=== PATIENT | male | born 1965 | race Caucasian/White ===

== ENCOUNTER 2019-06-30 22:35 | Observation (INO) | payer BC ==
[2019-06-30] MEDS ORDERED: HYDROmorphone 0.5 MG/0.5 ML SYRINGE IVP STA (22:59)
[2019-06-30] MEDS ORDERED: SODIUM CHLORIDE 0.9% 500 ML 500 ML IV STA (22:59)
--- NOTE | 2019-06-30 23:18 | XR ---
EXAMINATION TYPE: XR KUB DATE OF EXAM: 06/30/2019 COMPARISON: NONE HISTORY: Abdominal pain TECHNIQUE: 3 views upright FINDINGS: There are some dilated small bowel loops with air-fluid levels. There is a relative lack of large bowel gas. Lung bases are clear. There are no pathologic calcifications over the kidneys. IMPRESSION: Mildly dilated small bowel suggestive of significant ileus or mechanical small bowel obst ruction. No free air.
--- NOTE | 2019-06-30 23:20 | ED ---
General Adult HPI - General Chief complaint: Abdominal Pain Stated complaint: abd pain Time Seen by Provider: 06/30/19 22:47 Source: patient, RN notes reviewed, old records reviewed Mode of arrival: ambulatory Limitations: no limitations - History of Present Illness Initial comments: 53 -year-old male presenting with abdominal pain and distention. Symptoms have progressed over the course of 12 hours. He's had 3 bowel movements and has been passing gas since the onset of symptoms. No nausea, no vomiting. Pain is predominantly upper abdomen. No chest pain or dyspnea. He's had subjective fever and chills. Previous history of abdominal umbilical hernia repair no other abdominal surgeries. - Related Data Home Medications Medication Instructions Recorded Confirmed Aspirin 81 mg PO DAILY 06/30/19 06/30/19 Carvedilol 12.5 mg PO BID 06/30/19 06/30/19 Clopidogrel [Plavix] 75 mg PO DAILY 06/30/19 06/30/19 Digoxin [Lanoxin] 250 mcg PO DAILY 06/30/19 06/30/19 Ezetimibe [Zetia] 10 mg PO DAILY 06/30/19 06/30/19 Fenofibrate Nanocrystallized 145 mg PO DAILY 06/30/19 06/30/19 [Fenofibrate] Pitavastatin Calcium [Livalo] 1 mg PO Q24HR 06/30/19 06/30/19 Ranitidine HCl 150 mg PO BID 06/30/19 06/30/19 Sacubitril/Valsartan [Entresto 24 1 each PO BID 06/30/19 06/30/19 mg-26 mg Tablet] metFORMIN HCL 500 mg PO BID 06/30/19 06/30/19 Allergies Allergy/AdvReac Type Severity Reaction Status Date / Time No Known Allergies Allergy Verified 06/30/19 22:40 Review of Systems ROS Statement: Those systems with pertinent positive or pertinent negative responses have been documented in the HPI. ROS Other: All systems not noted in ROS Statement are negative. Past Medical History Past Medical History: Hyperlipidemia, Hypertension Additional Past Medical History / Comment(s): LBBB History of Any Multi-Drug Resistant Organisms: None Reported Past Surgical History: Heart Catheterization With Stent, Pacemaker Past Psychological History: No Psychological Hx Reported Smoking Status: Never smoker Past Alcohol Use History: None Reported Past Drug Use History: None Reported General Exam Limitations: no limitations General appearance: alert, in no apparent distress Head exam: Present: atraumatic, normocephalic Eye exam: Present: normal appearance, PERRL ENT exam: Present: normal exam Neck exam: Present: normal inspection. Absent: tenderness, meningismus Respiratory exam: Present: normal lung sounds bilaterally. Absent: respiratory distress, wheezes Cardiovascular Exam: Present: regular rate, normal rhythm GI/Abdominal exam: Present: distended, tenderness. Absent: soft Extremities exam: Present: normal inspection, normal capillary refill. Absent: pedal edema Neurological exam: Present: alert, oriented X3, CN II-XII intact. Absent: motor sensory deficit Psychiatric exam: Present: normal affect, normal mood Skin exam: Present: warm, dry, intact. Absent: cyanosis, diaphoretic Course Vital Signs 06/30/19 22:37 Temperature 98.9 F Pulse Rate 79 Respiratory 16 Rate Blood Pressure 138/88 O2 Sat by Pulse 99 Oximetry Medical Decision Making - Medical Decision Making 53-year-old male with 12 hours of abdominal distention and pain. X-ray performed, concerning for ileus or small bowel obstruction, CT performed showing small bowel obstruction with no transition point. Normal CBC, normal CMP, mild lactic acidosis 2.1. Patient hasn't nasogastric tube inserted in the emergency department. Discussed case with Dr. Lazcano covering for surgery, will admit with medicine on consult. - Lab Data Result diagrams: 06/30/19 23:06 06/30/19 23:06 Lab Results 06/30/19 06/30/19 06/30/19 Range/Units 23:06 23:06 23:06 WBC 10.2 (3.8-10.6) k/uL RBC 5.21 (4.30-5.90) m/uL Hgb 15.3 (13.0-17.5) gm/dL Hct 46.1 (39.0-53.0) % MCV 88.5 (80.0-100.0) fL MCH 29.3 (25.0-35.0) pg MCHC 33.1 (31.0-37.0) g/dL RDW 13.4 (11.5-15.5) % Plt Count 222 (150-450) k/uL Neutrophils % 80 % Lymphocytes % 11 % Monocytes % 5 % Eosinophils % 1 % Basophils % 1 % Neutrophils # 8.1 H (1.3-7.7) k/uL Lymphocytes # 1.1 (1.0-4.8) k/uL Monocytes # 0.5 (0-1.0) k/uL Eosinophils # 0.1 (0-0.7) k/uL Basophils # 0.1 (0-0.2) k/uL PT (9.0-12.0) sec INR (<1.2) APTT (22.0-30.0) sec Sodium 138 (137-145) mmol/L Potassium 4.1 (3.5-5.1) mmol/L Chloride 104 (98-107) mmol/L Carbon Dioxide 23 (22-30) mmol/L Anion Gap 11 mmol/L BUN 19 (9-20) mg/dL Creatinine 0.91 (0.66-1.25) mg/dL Est GFR (CKD-EPI)AfAm >90 (>60 ml/min/1.73 sqM) Est GFR (CKD-EPI)NonAf >90 (>60 ml/min/1.73 sqM) Glucose 161 H (74-99) mg/dL Plasma Lactic Acid Srinivas 2.1 H* (0.7-2.0) mmol/L Calcium 9.9 (8.4-10.2) mg/dL Total Bilirubin 0.7 (0.2-1.3) mg/dL AST 30 (17-59) U/L ALT 41 (4-49) U/L Alkaline Phosphatase 64 (38-126) U/L Total Protein 8.3 H (6.3-8.2) g/dL Albumin 5.0 (3.5-5.0) g/dL Amylase 59 (30-110) U/L Lipase 101 (23-300) U/L Urine Color Urine Appearance (Clear) Urine pH (5.0-8.0) Ur Specific [place] (1.001-1.035) Urine Protein (Negative) Urine Glucose (UA) (Negative) Urine Ketones (Negative) Urine Blood (Negative) Urine Nitrite (Negative) Urine Bilirubin (Negative) Urine Urobilinogen (<2.0) mg/dL Ur Leukocyte Esterase (Negative) Urine RBC (0-5) /hpf Urine WBC (0-5) /hpf Amorphous Sediment (None) /hpf Urine Bacteria (None) /hpf Urine Mucus (None) /hpf 02/02/20 02/02/20 Range/Units 23:06 23:06 WBC (3.8-10.6) k/uL RBC (4.30-5.90) m/uL Hgb (13.0-17.5) gm/dL Hct (39.0-53.0) % MCV (80.0-100.0) fL MCH (25.0-35.0) pg MCHC (31.0-37.0) g/dL RDW (11.5-15.5) % Plt Count (150-450) k/uL Neutrophils % % Lymphocytes % % Monocytes % % Eosinophils % % Basophils % % Neutrophils # (1.3-7.7) k/uL Lymphocytes # (1.0-4.8) k/uL Monocytes # (0-1.0) k/uL Eosinophils # (0-0.7) k/uL Basophils # (0-0.2) k/uL PT 10.0 (9.0-12.0) sec INR 1.0 (<1.2) APTT 22.1 (22.0-30.0) sec Sodium (137-145) mmol/L Potassium (3.5-5.1) mmol/L Chloride (98-107) mmol/L Carbon Dioxide (22-30) mmol/L Anion Gap mmol/L BUN (9-20) mg/dL Creatinine (0.66-1.25) mg/dL Est GFR (CKD-EPI)AfAm (>60 ml/min/1.73 sqM) Est GFR (CKD-EPI)NonAf (>60 ml/min/1.73 sqM) Glucose (74-99) mg/dL Plasma Lactic Acid Srinivas (0.7-2.0) mmol/L Calcium (8.4-10.2) mg/dL Total Bilirubin (0.2-1.3) mg/dL AST (17-59) U/L ALT (4-49) U/L Alkaline Phosphatase (38-126) U/L Total Protein (6.3-8.2) g/dL Albumin (3.5-5.0) g/dL Amylase (30-110) U/L Lipase (23-300) U/L Urine Color Yellow Urine Appearance Cloudy (Clear) Urine pH 5.0 (5.0-8.0) Ur Specific [place] 1.024 (1.001-1.035) Urine Protein Trace H (Negative) Urine Glucose (UA) Negative (Negative) Urine Ketones Negative (Negative) Urine Blood Negative (Negative) Urine Nitrite Negative (Negative) Urine Bilirubin Negative (Negative) Urine Urobilinogen <2.0 (<2.0) mg/dL Ur Leukocyte Esterase Negative (Negative) Urine RBC 1 (0-5) /hpf Urine WBC 3 (0-5) /hpf Amorphous Sediment Rare H (None) /hpf Urine Bacteria Rare H (None) /hpf Urine Mucus Few H (None) /hpf Disposition Clinical Impression: Small bowel obstruction Disposition: ADMITTED IP TO THIS [facility] Condition: Stable Is patient prescribed a controlled substance at d/c from ED?: No Referrals: Nonstaff,Physician [Primary Care Provider] - 1-2 days Decision to Admit Reason: Admit from EC Decision Date: 07/01/19 Decision Time: 00:53
[2019-06-30 23:29] LABS: Basophils # (A) 0.1 k/uL (0-0.2); Basophils % (A) 1 %; Eosinophils # (A) 0.1 k/uL (0-0.7); Eosinophils % (A) 1 %; HCT 46.1 % (39.0-53.0); HGB 15.3 gm/dL (13.0-17.5); Lymphocytes # (A) 1.1 k/uL (1.0-4.8); Lymphocytes % (A) 11 %; MCH 29.3 pg (25.0-35.0); MCHC 33.1 g/dL (31.0-37.0); MCV 88.5 fL (80.0-100.0); Mean Platelet Volume 7.8; Monocytes # (A) 0.5 k/uL (0-1.0); Monocytes % (A) 5 %; Neutrophils # (A) 8.1 k/uL (1.3-7.7); Neutrophils % (A) 80 %; Platelet Count 222 k/uL (150-450); RBC 5.21 m/uL (4.30-5.90); RDW 13.4 % (11.5-15.5); WBC 10.2 k/uL (3.8-10.6)
[2019-06-30 23:35] LABS: Amorphous Sediment,Urine Rare /hpf; Appearance,Urine Cloudy (Clear); Bacteria,Urine Rare /hpf; Bilirubin,Urine Negative (Negative); Blood,Urine Negative (Negative); Color,Urine Yellow; Glucose,Urine (UA) Negative (Negative); Ketones,Urine Negative (Negative); Leukocyte Esterase,Urine Negative (Negative); Mucus,Urine Few /hpf; Nitrite,Urine Negative (Negative); Protein,Urine Trace (Negative); RBC,Urine 1 /hpf (0-5); Specific Gravity,Urine 1.024 (1.001-1.035); Urobilinogen,Urine <2.0 mg/dL (<2.0); WBC,Urine 3 /hpf (0-5)
[2019-06-30 23:37] LABS: Partial Thromboplastin Time 22.1 sec (22.0-30.0)
[2019-06-30 23:45] LABS: ALT 41 U/L (4-49); AST 30 U/L (17-59); African American GFR (CKD) >90 (>60 ml/min/1.73 sqM); Alkaline Phosphatase 64 U/L (38-126); Amylase 59 U/L (30-110); Anion Gap 11 mmol/L; Blood Urea Nitrogen 19 mg/dL (9-20); Calcium 9.9 mg/dL (8.4-10.2); Carbon Dioxide 23 mmol/L (22-30); Chloride 104 mmol/L (98-107); Glucose 161 mg/dL (74-99); Non-African American GFR(CKD) >90 (>60 ml/min/1.73 sqM); Potassium 4.1 mmol/L (3.5-5.1); Sodium 138 mmol/L (137-145); Total Bilirubin 0.7 mg/dL (0.2-1.3); Total Protein 8.3 g/dL (6.3-8.2)
--- NOTE | 2019-07-01 00:39 | CT ---
EXAMINATION TYPE: CT abdomen pelvis w con DATE OF EXAM: 07/01/2019 COMPARISON: None HISTORY: Patient presents with abdominal distention. CT DLP: 1606.5 mGycm Automated exposure control for dose reduction was used. CONTRAST: Performed with IV Contrast, patient injected with 100mL mL of Isovue 300. Multiple axial sections were obtained from the diaphragm to the floor the pelvis with intravenous con trast. There is minimal subsegmental atelectasis at the lung bases. Heart size is normal. There is no pleural effusion. There is fatty infiltration of the liver. Spleen is intact. Stomach is intact. There is no pancreatic mass. Gallbladder appears normal. Bile ducts are not dilated. There is no adrenal mass. Kidneys have normal size and contour. There is no hydronephrosis. Ureters are not d ilated. There is 2 mm calculus lateral right kidney. There is 1 cm cyst anterior left kidney. There i s no retroperitoneal adenopathy. Bladder distends smoothly. There is no inguinal hernia. There are multiple dilated air and fluid-filled loops of small bowel throughout the abdomen. The appe ndix appears normal. There is sigmoid diverticulosis without diverticulitis. Transition point is not identified. Lumbar vertebra show anterior mild subluxation of L5 in relation S1. There is no compression fracture . There is L5 spondylolysis. There is first-degree L5-S1 spondylolisthesis. Bony pelvis appears intac t. IMPRESSION: Dilated small bowel with fluid levels consistent with mechanical small bowel obstruction. Transition point not identified. Normal appendix.
[2019-07-01] MEDS ORDERED: HYDROmorphone 1 MG/ML 1 ML SYRINGE IVP PRN (00:50)
[2019-07-01] MEDS ORDERED: NALOXONE 0.4 MG/ML 1 ML VIAL IV PRN (00:50)
[2019-07-01] MEDS ORDERED: ONDANSETRON 4 MG/2 ML VIAL IVP PRN ×2 (00:50→05:59)
[2019-07-01] MEDS ORDERED: HYDROmorphone 0.5 MG/0.5 ML SYRINGE IVP PRN (00:50)
[2019-07-01] MEDS: SODIUM CHLORIDE 0.9% 1,000 ML IV SCH ×3 (01:38→21:07)
[2019-07-01] MEDS: PANTOPRAZOLE 40 MG/10 ML VIAL IV SCH (07:39)
--- NOTE | 2019-07-01 10:11 | P.GSHP ---
History of Present Illness H&P Date: 07/01/19 53-year-old male presented to the emergency department with complaint of abdominal pain for 24 hours. He states that he had significant amount of abdominal pain and bloating. He also felt nauseous. He states that his only previous abdominal surgery is an umbilical hernia repair in 2011. He states his last colonoscopy was 5 years ago with no significant findings other than diverticulosis. On work-up in the emergency department, he was noted to have an ileus versus small bowel obstruction on abdominal x-ray. On CT of the abdomen and pelvis, there is concern for a small bowel obstruction. Nasogastric tube was placed. 800 cc of bilious material was drained. The patient also states that after NG tube was placed he did have emesis episodes. He states currently his abdominal bloating has decreased significantly and his abdominal pain has resolved. He denies any fevers, chills, chest pain or shortness of breath. - Review of Systems All systems: negative Past Medical History Past Medical History: Diabetes Mellitus, Hyperlipidemia, Hypertension Additional Past Medical History / Comment(s): LBBB, Congestive heart failure with AICD follows with [facility], History of Any Multi-Drug Resistant Organisms: None Reported Past Surgical History: Heart Catheterization With Stent, Hernia Repair, Pacemaker Additional Past Surgical History / Comment(s): stent to left circumflex 03/15, PPM with ICD /19, right ankle fracture repair 1995, umbilical hernia repair 2011, achilles tendon repair left 2012 Past Anesthesia/Blood Transfusion Reactions: No Reported Reaction Date of Last Stent Placement:: 02/2018 Type of Cardiac Device: Unknown Device Placement Date:: 06/2018 Past Psychological History: No Psychological Hx Reported Smoking Status: Former smoker Past Alcohol Use History: Rare Past Drug Use History: None Reported - Past Family History Father Additional Family Medical History / Comment(s): cardiac issues, CAD, from lung cancer, HLD Mother Additional Family Medical History / Comment(s): Hepatitis C due to blood tranfusion and developed liver failure, HLD Medications and Allergies Home Medications Medication Instructions Recorded Confirmed Type Aspirin 81 mg PO DAILY 06/30/19 06/30/19 History Carvedilol 12.5 mg PO BID 06/30/19 06/30/19 History Clopidogrel [Plavix] 75 mg PO DAILY 06/30/19 06/30/19 History Digoxin [Lanoxin] 250 mcg PO DAILY 06/30/19 06/30/19 History Ezetimibe [Zetia] 10 mg PO DAILY 06/30/19 06/30/19 History Fenofibrate Nanocrystallized 145 mg PO DAILY 06/30/19 06/30/19 History [Fenofibrate] Pitavastatin Calcium [Livalo] 1 mg PO Q24HR 06/30/19 06/30/19 History Ranitidine HCl 150 mg PO BID 06/30/19 06/30/19 History Sacubitril/Valsartan [Entresto 24 1 each PO BID 06/30/19 06/30/19 History mg-26 mg Tablet] metFORMIN HCL 500 mg PO BID 06/30/19 06/30/19 History Allergies Allergy/AdvReac Type Severity Reaction Status Date / Time No Known Allergies Allergy Verified 06/30/19 22:40 Surgical - Exam Osteopathic Statement: *. No significant issues noted on an osteopathic structural exam other than those noted in the History and Physical/Consult. Vital Signs Temp Pulse Resp BP Pulse Ox 98.9 F 79 16 138/88 99 06/30/19 22:37 06/30/19 22:37 06/30/19 22:37 06/30/19 22:37 06/30/19 22:37 - General well nourished, no distress - Eyes PERRL - ENT no hearing loss - Respiratory normal respiratory effort - Abdomen Soft, nontender, mild distention, no rebound, no guarding - Psychiatric oriented to time, oriented to person, oriented to place Results - Labs 06/30/19 23:06 06/30/19 23:06 Abnormal Lab Results - Last 24 Hours (Table) 06/30/19 06/30/19 06/30/19 Range/Units 23:06 23:06 23:06 Neutrophils # 8.1 H (1.3-7.7) k/uL Glucose 161 H (74-99) mg/dL Plasma Lactic Acid Srinivas 2.1 H* (0.7-2.0) mmol/L Total Protein 8.3 H (6.3-8.2) g/dL Urine Protein (Negative) Amorphous Sediment (None) /hpf Urine Bacteria (None) /hpf Urine Mucus (None) /hpf 06/30/19 Range/Units 23:06 Neutrophils # (1.3-7.7) k/uL Glucose (74-99) mg/dL Plasma Lactic Acid Srinivas (0.7-2.0) mmol/L Total Protein (6.3-8.2) g/dL Urine Protein Trace H (Negative) Amorphous Sediment Rare H (None) /hpf Urine Bacteria Rare H (None) /hpf Urine Mucus Few H (None) /hpf Diabetes panel 06/30/19 Range/Units 23:06 Sodium 138 (137-145) mmol/L Potassium 4.1 (3.5-5.1) mmol/L Chloride 104 (98-107) mmol/L Carbon Dioxide 23 (22-30) mmol/L BUN 19 (9-20) mg/dL Creatinine 0.91 (0.66-1.25) mg/dL Glucose 161 H (74-99) mg/dL Calcium 9.9 (8.4-10.2) mg/dL AST 30 (17-59) U/L ALT 41 (4-49) U/L Alkaline Phosphatase 64 (38-126) U/L Total Protein 8.3 H (6.3-8.2) g/dL Albumin 5.0 (3.5-5.0) g/dL Calcium panel 06/30/19 Range/Units 23:06 Calcium 9.9 (8.4-10.2) mg/dL Albumin 5.0 (3.5-5.0) g/dL Pituitary panel 06/30/19 Range/Units 23:06 Sodium 138 (137-145) mmol/L Potassium 4.1 (3.5-5.1) mmol/L Chloride 104 (98-107) mmol/L Carbon Dioxide 23 (22-30) mmol/L BUN 19 (9-20) mg/dL Creatinine 0.91 (0.66-1.25) mg/dL Glucose 161 H (74-99) mg/dL Calcium 9.9 (8.4-10.2) mg/dL Adrenal panel 06/30/19 Range/Units 23:06 Sodium 138 (137-145) mmol/L Potassium 4.1 (3.5-5.1) mmol/L Chloride 104 (98-107) mmol/L Carbon Dioxide 23 (22-30) mmol/L BUN 19 (9-20) mg/dL Creatinine 0.91 (0.66-1.25) mg/dL Glucose 161 H (74-99) mg/dL Calcium 9.9 (8.4-10.2) mg/dL Total Bilirubin 0.7 (0.2-1.3) mg/dL AST 30 (17-59) U/L ALT 41 (4-49) U/L Alkaline Phosphatase 64 (38-126) U/L Total Protein 8.3 H (6.3-8.2) g/dL Albumin 5.0 (3.5-5.0) g/dL Assessment and Plan (1) Small bowel obstruction Narrative/Plan: 53-year-old male with small bowel obstruction versus ileus Patient states that his last bowel movement and flatus was yesterday, prior to his arrival to the emergency department. We will obtain a abdominal x-ray for evaluation of progress of the small bowel obstruction. Keep the patient n.p.o. Continue nasogastric tube decompression at this time. Current Visit: Yes Status: Acute Code(s): K56.609 - UNSP INTESTNL OBST, UNSP TO PARTIAL VERSUS COMPLETE OBST SNOMED Code(s): 906519996
--- NOTE | 2019-07-01 11:31 | P.CONS ---
History of Present Illness - Reason for Consult Consult date: 07/01/19 CHF Requesting physician: Manjinder Lazcano - Chief Complaint abdominal pain - History of Present Illness Patient is a 53-year-old male with history of heart failure, coronary artery disease status post stenting, hypertension, and diabetes controlled with metformin who presented to the emergency department secondary to abdominal pain. In the ER he underwent an extensive evaluation. His initial vital signs were unremarkable. Laboratory analysis showed an elevated lactic acid of 2.1 which resolved with IV fluids, but was otherwise unremarkable. KUB showed mildly dilated small bowel suggestive significant ileus or mechanical bowel obstruction. He underwent a CT abdomen and pelvis which showed dilated small bowel with fluid levels consistent with mechanical bowel obstruction without transition point. He was given IV fluids, antiemetics, and Dilaudid. He had an NG tube placed with return of 800 mL. He was subsequently admitted to surgery and we were asked to consult for his hypertension. Patient seen and examined at bedside. He reports abdominal pain that started in the afternoon on 06/30, associated with feeling bloated and belching. Progressed to worsening abdominal pressure that was more intense. Had a bowel movement yesterday. Pain was periumbilical with radiation to right and left, no nausea, vomiting X 1 at 5 am after NGT, Unsure if NGT improved the pain. No history of bowel obstruction, had umbilical hernia repaired in 2011. No recent cough, cold, fever, flus. No recent diarrhea or constipation Typically take fiber therapy due to diverticulosis. Colonoscopy at age 48 just with diverticulosis. No hisotry of hospitalization for heart failure. PCP: [facility] in [place] [phone]. Review of Systems Pertinent positives and negatives as discussed in HPI, a complete review of systems was performed and all other systems are negative. Past Medical History Past Medical History: Diabetes Mellitus, Hyperlipidemia, Hypertension Additional Past Medical History / Comment(s): LBBB, Congestive heart failure with AICD follows with [facility], History of Any Multi-Drug Resistant Organisms: None Reported Past Surgical History: Heart Catheterization With Stent, Hernia Repair, Pacemaker Additional Past Surgical History / Comment(s): stent to left circumflex 03/15, PPM with ICD 07/17, right ankle fracture repair 1995, umbilical hernia repair 2011, achilles tendon repair left 2012 Past Anesthesia/Blood Transfusion Reactions: No Reported Reaction Date of Last Stent Placement:: 02/2018 Type of Cardiac Device: Unknown Device Placement Date:: 06/2018 Past Psychological History: No Psychological Hx Reported Smoking Status: Former smoker Past Alcohol Use History: Rare Past Drug Use History: None Reported 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[employer], 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, 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 - Past Family History Father Additional Family Medical History / Comment(s): cardiac issues, CAD, from lung cancer, HLD Mother Additional Family Medical History / Comment(s): Hepatitis C due to blood tranfusion and developed liver failure, HLD Medications and Allergies Home Medications Medication Instructions Recorded Confirmed Type Aspirin 81 mg PO DAILY 06/30/19 07/01/19 History Carvedilol 12.5 mg PO BID 06/30/19 07/01/19 History Clopidogrel [Plavix] 75 mg PO DAILY 06/30/19 07/01/19 History Digoxin [Lanoxin] 250 mcg PO DAILY 06/30/19 07/01/19 History Ezetimibe [Zetia] 10 mg PO DAILY 06/30/19 07/01/19 History Fenofibrate Nanocrystallized 145 mg PO DAILY 06/30/19 07/01/19 History [Fenofibrate] Pitavastatin Calcium [Livalo] 1 mg PO MOWEFR 06/30/19 07/01/19 History Ranitidine HCl 150 mg PO BID 06/30/19 07/01/19 History Sacubitril/Valsartan [Entresto 24 1 tab PO BID 06/30/19 07/01/19 History mg-26 mg Tablet] metFORMIN HCL 500 mg PO BID 06/30/19 07/01/19 History [employer] Epa [employer]ems 1gr 1 cap PO BID 07/01/19 07/01/19 History Allergies Allergy/AdvReac Type Severity Reaction Status Date / Time No Known Allergies Allergy Verified 06/30/19 22:40 Physical Exam Osteopathic Statement: *. No significant issues noted on an osteopathic structural exam other than those noted in the History and Physical/Consult. Vitals: Vital Signs Temp Pulse Pulse Resp BP BP Pulse Ox 07/01/19 05:00 97.6 F 89 18 139/79 93 L 07/01/19 02:48 97.2 F L 69 18 144/79 92 L 07/01/19 02:18 68 15 97 07/01/19 01:36 98.2 F 75 15 121/74 97 06/30/19 22:37 98.9 F 79 16 138/88 99 Intake and Output 06/30/19 07/01/19 07/01/19 22:59 06:59 14:59 Intake Total 0 Output Total 1000 Balance -1000 Intake: Oral 0 Output: Gastric Drainage 800 Emesis 200 Other: # Voids 1 Weight 108.862 kg 108.862 kg \General: , no distress, appears at stated age, obese Derm: no unusual rashes/lesions no unusual ecchymoses, warm, dry Head: atraumatic, normocephalic, symmetric Eyes: EOMI, no lid lag, anicteric sclera, pupils equal round reactive to light ENT: Nose and ears atraumatic, no thrush, no pharyngeal erythema Neck: No thyromegaly, no cervical lymphadenopathy, trachea midline, supple Mouth: no lip lesion, mucus membranes dry Cardiovascular: S1S2 reg, no murmur, positive posterior tibial pulse bilateral, no edema, capillary refill less than 2 seconds Lungs: Decreased breath sounds bilateral, no rhonchi, no rales , no accessory muscle use Abdominal: Hypoactive bowel sounds, soft, nontender to palpation, no guarding, no appreciable organomegaly Ext: no gross muscle atrophy, muscle strength 5 out of 5 in all 4 extremities grossly, no contractures, Neuro: CN II-XI grossly intact, light touch intact all 4 extremities, finger to nose within normal limits, Psych: Alert, oriented, appropriate affect Results CBC & Chem 7: 06/30/19 23:06 06/30/19 23:06 Labs: Abnormal Lab Results - Last 24 Hours (Table) 06/30/19 06/30/19 06/30/19 Range/Units 23:06 23:06 23:06 Neutrophils # 8.1 H (1.3-7.7) k/uL Glucose 161 H (74-99) mg/dL Plasma Lactic Acid Srinivas 2.1 H* (0.7-2.0) mmol/L Total Protein 8.3 H (6.3-8.2) g/dL Urine Protein (Negative) Amorphous Sediment (None) /hpf Urine Bacteria (None) /hpf Urine Mucus (None) /hpf 06/30/19 Range/Units 23:06 Neutrophils # (1.3-7.7) k/uL Glucose (74-99) mg/dL Plasma Lactic Acid Srinivas (0.7-2.0) mmol/L Total Protein (6.3-8.2) g/dL Urine Protein Trace H (Negative) Amorphous Sediment Rare H (None) /hpf Urine Bacteria Rare H (None) /hpf Urine Mucus Few H (None) /hpf Abdominal x-ray: report reviewed CT scan - abdomen: report reviewed CT scan - pelvis: report reviewed Assessment and Plan Assessment: Patient is a 53-year-old male admitted for small bowel obstruction. Currently managed by surgery and had an NG tube in place for conservative management. Compensated congestive heart failure, unknown ejection fraction but since systolic based on medications and history of AICD placement -Continue with Coreg, distraction, and entresto -Follow fluid status closely -Obtain records from public health doctor and ejection fraction on last stress test results - Clamp NG tube for 40 minutes after the pills are given Coronary artery disease with history of stent -Continue with aspirin and Plavix Diabetes mellitus type 2 - hold metformin - SSI - check A1C Hypertension -Continue with Coreg and interest oh -Follow blood pressures Dyslipidemia -Zetia and fenofibrate on hold until NG tube was removed Thank you for allowing us to participate in the care of this pleasant patient. Do not hesitate to contact us with questions. Someone can be reached from the [facility] hospitalist group all hours of the day at [phone] or via perfect serve.
[2019-07-01] MEDS: CLOPIDOGREL 75 MG TAB PO SCH (12:50)
[2019-07-01] MEDS: ASPIRIN 81 MG PO SCH (12:50)
[2019-07-01] MEDS: CARVEDILOL 12.5 MG TAB PO SCH ×2 (12:50→17:55)
[2019-07-01] MEDS: DIGOXIN 250 MCG TAB PO SCH (12:51)
[2019-07-01] MEDS: SACUBITRIL/VALSARTAN 24 MG-26 MG TABLET PO SCH ×2 (12:51→21:07)
[2019-07-01] MEDS: INSULIN ASPART (NovoLOG) 100 UNIT/ML VIAL SQ SCH ×2 (13:38→16:55)
[2019-07-01 13:42] LABS: Glucose,Whole Blood 107 mg/dL (75-99)
--- NOTE | 2019-07-01 13:57 | XR ---
EXAMINATION TYPE: XR abdomen 2V DATE OF EXAM: 07/01/2019 HISTORY: Pain. Technique: 3 views of the abdomen are submitted. Comparison: 06/30/19 Findings: There is no convincing evidence of pneumoperitoneum. Multiple dilated loops of small bowel are redemonstrated with air-fluid levels noted. The overall manjit earance may be slightly improved relative to the prior study. NG tube is seen coursing into the stoma ch. No mass effects are noted. No renal calcifications are identified. IMPRESSION: 1. Multiple dilated loops of small bowel are redemonstrated with air-fluid levels noted. The overall appearance may be slightly improved relative to the prior study. NG tube is seen coursing into the st omach.
[2019-07-01] MEDS: HEPARIN SODIUM,PORCINE 5,000 UNIT/ML 1 ML VIAL SQ SCH ×2 (16:52→23:25)
[2019-07-01 16:53] LABS: Glucose,Whole Blood 121 mg/dL (75-99)
[2019-07-02 00:05] LABS: Glucose,Whole Blood 112 mg/dL (75-99)
[2019-07-02] MEDS: INSULIN ASPART (NovoLOG) 100 UNIT/ML VIAL SQ SCH ×5 (00:17→21:28)
[2019-07-02 05:49] LABS: Glucose,Whole Blood 102 mg/dL (75-99)
[2019-07-02] MEDS: ASPIRIN 81 MG PO SCH (08:16)
[2019-07-02] MEDS: FAMOTIDINE 20 MG TAB PO SCH ×3 (08:16→21:28)
[2019-07-02] MEDS: CARVEDILOL 12.5 MG TAB PO SCH ×2 (08:16→17:28)
[2019-07-02] MEDS: HEPARIN SODIUM,PORCINE 5,000 UNIT/ML 1 ML VIAL SQ SCH ×3 (08:16→23:32)
[2019-07-02] MEDS: CLOPIDOGREL 75 MG TAB PO SCH (08:16)
[2019-07-02] MEDS: PANTOPRAZOLE 40 MG/10 ML VIAL IV SCH (08:16)
[2019-07-02] MEDS: DIGOXIN 250 MCG TAB PO SCH (08:17)
[2019-07-02] MEDS: SACUBITRIL/VALSARTAN 24 MG-26 MG TABLET PO SCH ×2 (08:17→21:28)
[2019-07-02 08:33] LABS: HCT 39.6 % (39.0-53.0); HGB 13.1 gm/dL (13.0-17.5); MCH 29.9 pg (25.0-35.0); MCHC 33.2 g/dL (31.0-37.0); MCV 90.2 fL (80.0-100.0); Mean Platelet Volume 7.7; Platelet Count 185 k/uL (150-450); RBC 4.39 m/uL (4.30-5.90); RDW 13.8 % (11.5-15.5); WBC 6.4 k/uL (3.8-10.6)
[2019-07-02 08:41] LABS: African American GFR (CKD) >90 (>60 ml/min/1.73 sqM); Anion Gap 7 mmol/L; Blood Urea Nitrogen 18 mg/dL (9-20); Calcium 8.5 mg/dL (8.4-10.2); Carbon Dioxide 24 mmol/L (22-30); Chloride 107 mmol/L (98-107); Glucose 106 mg/dL (74-99); Magnesium 2.1 mg/dL (1.6-2.3); Non-African American GFR(CKD) >90 (>60 ml/min/1.73 sqM); Phosphorus 2.7 mg/dL (2.5-4.5); Potassium 3.9 mmol/L (3.5-5.1); Sodium 138 mmol/L (137-145)
[2019-07-02] MEDS: SODIUM CHLORIDE 0.9% 1,000 ML IV SCH ×2 (11:01→17:28)
[2019-07-02 11:46] LABS: Glucose,Whole Blood 105 mg/dL (75-99)
--- NOTE | 2019-07-02 14:04 | XR ---
EXAMINATION TYPE: XR abdomen 2V DATE OF EXAM: 07/02/2019 CLINICAL HISTORY: Abdominal distention. Bowel obstruction. TECHNIQUE: Supine and upright views of the abdomen are obtained. COMPARISON: CT from 2 days ago. Abdominal x-ray series from 1 day ago. FINDINGS: Redemonstration of nasogastric tube. Scattered gas in prominent but not greater than 3 cm d istended small bowel loops in the left abdomen show continued improvement from last few studies. No s uspicious air fluid levels currently. Gas and fecal material in the periphery redemonstrated. Scattered pelvic phleboliths. Partial visualization of pacemaker and defibrillator wires. Suspect tin y left pleural effusion and associated patchy left basilar atelectasis and/or infiltrate. IMPRESSION: 1. Continued resolving small bowel obstruction felt present. 2. New small to tiny left pleural effusion and patchy left basilar atelectasis and/or infiltrate, cor relate clinically.
--- NOTE | 2019-07-02 14:17 | P.PN ---
Subjective Progress Note Date: 07/02/19 Patient seen and examined at bedside. States he is having flatus to or 3 times an hour. He states he did have a bowel movement late last evening. Denies nausea vomiting. Nasogastric tube output has decreased. Objective - Vital Signs Vital signs: Vital Signs Temp 98.5 F 07/02/19 05:00 Pulse 79 07/02/19 05:00 Resp 18 07/02/19 05:00 BP 110/70 07/02/19 05:00 Pulse Ox 96 07/02/19 05:00 Intake & Output 07/01/19 07/02/19 07/02/19 18:59 06:59 18:59 Intake Total 0 Output Total 350 450 Balance -350 -450 Intake: Oral 0 Output: Gastric Drainage 350 450 Other: Voiding Method Urinal Urinal # Voids 2 1 - Constitutional General appearance: Present: cooperative, no acute distress - Gastrointestinal Gastrointestinal Comment(s): Soft, nontender, nondistended, no rebound, no guarding - Psychiatric Psychiatric: Present: A&O x's 3 - Labs CBC & Chem 7: 07/02/19 07:30 07/02/19 07:30 Labs: Abnormal Lab Results - Last 24 Hours (Table) 07/01/19 07/02/19 07/02/19 Range/Units 16:50 00:00 05:44 Glucose (74-99) mg/dL POC Glucose (mg/dL) 121 H 112 H 102 H (75-99) mg/dL 07/02/19 07/02/19 Range/Units 07:30 11:44 Glucose 106 H (74-99) mg/dL POC Glucose (mg/dL) 105 H (75-99) mg/dL Assessment and Plan (1) Small bowel obstruction Narrative/Plan: 53-year-old male with small bowel obstruction versus ileus - Obstructive process appears to be resolving. Abdominal x-ray was reviewed. Air is noted in the colon. - Patient is beginning to have bowel function with flatus and bowel movement. We will remove the nasogastric tube and begin a clear liquid diet - Progressing slowly Current Visit: Yes Status: Acute Code(s): K56.609 - UNSP INTESTNL OBST, UNSP TO PARTIAL VERSUS COMPLETE OBST SNOMED Code(s): 894262699
[2019-07-02] MEDS ORDERED: HYDROcodone/APAP 5-325MG 1 EACH TAB PO PRN (14:19)
--- NOTE | 2019-07-02 17:08 | P.PN ---
Subjective Progress Note Date: 07/02/19 (delayed charting seen at 1210) Principal diagnosis: abdominal pain Patient is a 53-year-old male with history of heart failure, coronary artery disease status post stenting, hypertension, and diabetes controlled with metformin who presented to the emergency department secondary to abdominal pain. In the ER he underwent an extensive evaluation. His initial vital signs were unremarkable. Laboratory analysis showed an elevated lactic acid of 2.1 which resolved with IV fluids, but was otherwise unremarkable. KUB showed mildly dilated small bowel suggestive significant ileus or mechanical bowel obstruction. He underwent a CT abdomen and pelvis which showed dilated small bowel with fluid levels consistent with mechanical bowel obstruction without transition point. He was given IV fluids, antiemetics, and Dilaudid. He had an NG tube placed with return of 800 mL. He was subsequently admitted to surgery and we were asked to consult for his hypertension. He was made NPO and NGT was continued. He did have a bowel movement on 07/01 and was passing large amounts of flatus. Patient seen and examined at bedside. He reports that he is passing lots of gas, abdominal pain is resolved, no nausea, no chest pain or shortness of breath. Anxious about what he can do to prevent small bowel obstruction from recurring. Objective - Vital Signs Vital signs: Vital Signs Temp 98.1 F 07/02/19 13:22 Pulse 68 07/02/19 13:22 Resp 16 07/02/19 15:55 BP 138/74 07/02/19 13:22 Pulse Ox 97 07/02/19 13:22 Intake & Output 07/01/19 07/02/19 07/02/19 18:59 06:59 18:59 Intake Total 0 540 Output Total 350 450 Balance -350 -450 540 Intake: Oral 0 540 Output: Gastric Drainage 350 450 Other: Voiding Method Urinal Urinal # Voids 2 1 3 - Exam General: non toxic, no distress, appears at stated age, diaphoretic Derm: warm, dry Head: atraumatic, normocephalic, symmetric Eyes: EOMI, no lid lag, anicteric sclera Mouth: no lip lesion, mucus membranes moist Cardiovascular: S1S2 reg, no murmur, positive posterior tibial pulse bilateral, Lungs: CTA bilateral, no rhonchi, no rales , no accessory muscle use Abdominal: hypoactive bowel sounds, soft, nontender to palpation, no guarding Ext: no gross muscle atrophy, trace edema, no contractures Neuro: CN II-XI grossly intact, no focal neuro deficits Psych: Alert, oriented, appropriate affect - Labs CBC & Chem 7: 07/02/19 07:30 07/02/19 07:30 Labs: Abnormal Lab Results - Last 24 Hours (Table) 07/02/19 07/02/19 07/02/19 Range/Units 00:00 05:44 07:30 Glucose 106 H (74-99) mg/dL POC Glucose (mg/dL) 112 H 102 H (75-99) mg/dL 07/02/19 Range/Units 11:44 Glucose (74-99) mg/dL POC Glucose (mg/dL) 105 H (75-99) mg/dL Assessment and Plan Assessment: Patient is a 53-year-old male admitted for small bowel obstruction. Currently managed by surgery and had an NG tube in place for conservative management. Compensated congestive heart failure, unknown ejection fraction but since systol ic based on medications and history of AICD placement -Continue with Coreg, distraction, and entresto -Follow fluid status closely -Obtain records from eligibility supervisor and ejection fraction on last stress test results - Clamp NG tube for 40 minutes after the pills are given Coronary artery disease with history of stent -Continue with aspirin and Plavix Diabetes mellitus type 2 - hold metformin - SSI - check A1C as outpatient Hypertension -Continue with Coreg and entresto -Follow blood pressures Dyslipidemia -Zetia and fenofibrate on hold until NG tube removed DVT prophylaxis: heaprin Discussed with: patient, nursing Anticipated discharge: 1-[address]: home A total of 20 minutes was spent on the care of this complex patient more than 50% of the time was spent in counseling and care coordination.
[2019-07-02 17:22] LABS: Glucose,Whole Blood 109 mg/dL (75-99)
[2019-07-02 20:40] LABS: Glucose,Whole Blood 141 mg/dL (75-99)
[2019-07-03 05:13] VITALS: RESP 16
[2019-07-03] MEDS: SODIUM CHLORIDE 0.9% 1,000 ML IV SCH (05:25)
[2019-07-03 07:07] LABS: Glucose,Whole Blood 102 mg/dL (75-99)
[2019-07-03] MEDS: INSULIN ASPART (NovoLOG) 100 UNIT/ML VIAL SQ SCH ×2 (07:17→12:10)
[2019-07-03] MEDS: PANTOPRAZOLE 40 MG/10 ML VIAL IV SCH (07:45)
[2019-07-03] MEDS: HEPARIN SODIUM,PORCINE 5,000 UNIT/ML 1 ML VIAL SQ SCH (07:45)
[2019-07-03] MEDS: CARVEDILOL 12.5 MG TAB PO SCH (07:46)
[2019-07-03] MEDS: CLOPIDOGREL 75 MG TAB PO SCH (07:46)
[2019-07-03] MEDS: ASPIRIN 81 MG PO SCH (07:46)
[2019-07-03] MEDS: DIGOXIN 250 MCG TAB PO SCH (07:46)
[2019-07-03] MEDS: FAMOTIDINE 20 MG TAB PO SCH (07:46)
[2019-07-03] MEDS: SACUBITRIL/VALSARTAN 24 MG-26 MG TABLET PO SCH (07:47)
--- NOTE | 2019-07-03 08:39 | P.DS ---
Providers Date of admission: 07/01/19 00:52 Attending physician: Manjinder Lazcano DO Consults: 07/01/19 00:51 Consult Physician Routine Consulting Provider: Ivon Lacey Consult Reason/Comments: Medical management Do you want consulting provider notified?: Yes Primary care physician: Physician Nonstaff - Discharge Diagnosis(es) (1) Small bowel obstruction Current Visit: Yes Status: Acute Hospital Course: 53-year-old male presented to the emergency department with complaints of abdominal pain and significant bloating. On workup, there was concern for a small bowel obstruction. Nasogastric tube decompression was started and the patient was admitted. Throughout his admission, his small bowel obstruction resolved with bowel movement and continued flatus. Serial abdominal x-rays also showed a resolving small bowel obstruction. The patient began tolerating a diet and was noted to surgically be stable for discharge. The patient is [facility] and will be following with his primary care physician in [facility]. Patient Condition at Discharge: Stable Plan - Discharge Summary Discharge Rx Participant: No New Discharge Prescriptions: Continue Ranitidine HCl 150 mg PO BID Ezetimibe [Zetia] 10 mg PO DAILY Digoxin [Lanoxin] 250 mcg PO DAILY Aspirin 81 mg PO DAILY metFORMIN HCL 500 mg PO BID Sacubitril/Valsartan [Entresto 24 mg-26 mg Tablet] 1 tab PO BID Pitavastatin Calcium [Livalo] 1 mg PO MOWEFR Fenofibrate Nanocrystallized [Fenofibrate] 145 mg PO DAILY Clopidogrel [Plavix] 75 mg PO DAILY Carvedilol 12.5 mg PO BID [employer] Epa Gems 1gr 1 cap PO BID Discharge Medication List Aspirin 81 mg PO DAILY 06/30/19 [History] Carvedilol 12.5 mg PO BID 06/30/19 [History] Clopidogrel [Plavix] 75 mg PO DAILY 06/30/19 [History] Digoxin [Lanoxin] 250 mcg PO DAILY 06/30/19 [History] Ezetimibe [Zetia] 10 mg PO DAILY 06/30/19 [History] Fenofibrate Nanocrystallized [Fenofibrate] 145 mg PO DAILY 06/30/19 [History] Pitavastatin Calcium [Livalo] 1 mg PO MOWEFR 06/30/19 [History] Ranitidine HCl 150 mg PO BID 06/30/19 [History] Sacubitril/Valsartan [Entresto 24 mg-26 mg Tablet] 1 tab PO BID 06/30/19 [History] metFORMIN HCL 500 mg PO BID 06/30/19 [History] [employer] Epa Gems 1gr 1 cap PO BID 07/01/19 [History] Follow up Appointment(s)/Referral(s): Nonstaff,Physician [Primary Care Provider] - 1-2 days Patient Instructions/Handouts: Bowel Obstruction (DC) Activity/Diet/Wound Care/Special Instructions: Continue soft foods Follow-up with her primary care provider Discharge Disposition: HOME SELF-CARE
[2019-07-03 11:57] LABS: Glucose,Whole Blood 173 mg/dL (75-99)
--- NOTE | 2019-07-03 12:49 | P.PN ---
Subjective Progress Note Date: 07/03/19 (delayed charting seen at 0900) Principal diagnosis: abdominal pain Patient is a 53-year-old male with history of heart failure, coronary artery disease status post stenting, hypertension, and diabetes controlled with metformin who presented to the emergency department secondary to abdominal pain. In the ER he underwent an extensive evaluation. His initial vital signs were unremarkable. Laboratory analysis showed an elevated lactic acid of 2.1 which resolved with IV fluids, but was otherwise unremarkable. KUB showed mildly dilated small bowel suggestive significant ileus or mechanical bowel obstruction. He underwent a CT abdomen and pelvis which showed dilated small bowel with fluid levels consistent with mechanical bowel obstruction without transition point. He was given IV fluids, antiemetics, and Dilaudid. He had an NG tube placed with return of 800 mL. He was subsequently admitted to surgery and we were asked to consult for his hypertension. He was made NPO and NGT was continued. He did have a bowel movement on 07/01 and was passing large amounts of flatus. NGT was removed. He tolerated a diet and was passing flatus. He was determined stable for discharge from surgery. Patient seen and examined at bedside. Doing well. Up and walking. No nausea or vomiting. No bowel movement yesterday but passing gas. Chest pain or shortness of breath. Objective - Vital Signs Vital signs: Vital Signs Temp 98.5 F 07/03/19 05:12 Pulse 70 07/03/19 05:12 Resp 16 07/03/19 05:12 BP 116/69 07/03/19 05:12 Pulse Ox 96 07/03/19 05:12 Intake & Output 07/02/19 07/03/19 07/03/19 18:59 06:59 18:59 Intake Total 1080 Output Total 2200 Balance 1080 -2200 Intake: Oral 1080 Output: Urine 2200 Other: Voiding Method Urinal Urinal # Voids 2 - Exam General: non toxic, no distress, appears at stated age, diaphoretic Derm: warm, dry Head: atraumatic, normocephalic, symmetric Eyes: EOMI, no lid lag, anicteric sclera Mouth: no lip lesion, mucus membranes moist Cardiovascular: S1S2 reg, no murmur, positive posterior tibial pulse bilateral, Lungs: CTA bilateral, no rhonchi, no rales , no accessory muscle use Abdominal: hypoactive bowel sounds, soft, nontender to palpation, no guarding Ext: no gross muscle atrophy, trace edema, no contractures Neuro: CN II-XI grossly intact, no focal neuro deficits Psych: Alert, oriented, appropriate affect - Labs CBC & Chem 7: 07/02/19 07:30 07/02/19 07:30 Labs: Abnormal Lab Results - Last 24 Hours (Table) 07/02/19 07/02/19 07/02/19 Range/Units 11:44 17:16 20:39 POC Glucose (mg/dL) 105 H 109 H 141 H (75-99) mg/dL 07/03/19 Range/Units 06:57 POC Glucose (mg/dL) 102 H (75-99) mg/dL Assessment and Plan Assessment: Patient is a 53-year-old male admitted for small bowel obstruction. Currently managed by surgery and had an NG tube in place for conservative management. Compensated systolic congestive heart failure, unknown ejection fraction 43 % and history of AICD placement -Continue with Coreg, distraction, and entresto Coronary artery disease with history of stent -Continue with aspirin and Plavix Diabetes mellitus type 2 - metformin Hypertension -Continue with Coreg and entresto -Follow blood pressures Dyslipidemia -Zetia and fenofibrate Medically optimized for discharge if tolerated soft diet. DVT prophylaxis: heaprin Discussed with: patient, nursing, Dr. Lazcano A total of 20 minutes was spent on the care of this complex patient more than 50% of the time was spent in counseling and care coordination.
[2019-07-03 14:12] VITALS: BP 114/69; PULSE 71; TEMP 98.2
== END 2019-07-03 16:10 | disposition home or self-care (01) ==
LOC: EC 22:35 → 6NMEDSUR 07-01 00:52 → INTOOBSV 07-01 00:52 → UNDOADMIN 07-01 00:52 → UNDODISIN 07-03 16:10
PROVIDERS: ADMIT Surgery; ATTEND Surgery
DX: K56.609 Unspecified intestinal obstruction, unspecified as to partial versus complete obstruction (principal); E87.2 Acidosis; I50.22 Chronic systolic (congestive) heart failure; E11.9 Type 2 diabetes mellitus without complications; I11.0 Hypertensive heart disease with heart failure; E78.5 Hyperlipidemia, unspecified; K57.90 Diverticulosis of intestine, part unspecified, without perforation or abscess without bleeding; I25.10 Atherosclerotic heart disease of native coronary artery without angina pectoris; I44.7 Left bundle-branch block, unspecified; Z79.82 Long term (current) use of aspirin; Z79.84 Long term (current) use of oral hypoglycemic drugs; Z79.899 Other long term (current) drug therapy; Z98.890 Other specified postprocedural states; Z95.810 Presence of automatic (implantable) cardiac defibrillator; Z95.5 Presence of coronary angioplasty implant and graft; Z87.19 Personal history of other diseases of the digestive system; Z87.81 Personal history of (healed) traumatic fracture; Z87.891 Personal history of nicotine dependence; Z82.49 Family history of ischemic heart disease and other diseases of the circulatory system; Z83.49 Family history of other endocrine, nutritional and metabolic diseases; Z80.1 Family history of malignant neoplasm of trachea, bronchus and lung; Z84.89 Family history of other specified conditions; Z79.02 Long term (current) use of antithrombotics/antiplatelets
CPT/HCPCS: 96376 ×3; 96361 ×3; 96372 ×2; 96375 ×2; 96374; 99285; 36415; 86900; 86901; 80053; 80048; 82150; 83605 ×2; 83690; 83735; 84100; 85025; 85027; 85610; 85730; 86850; 81001; 74018; 74019 ×2; 74177; G0378 ×3; J1644 ×2; J2405; J1170 ×2; C9113 ×3; Q9967